=== PATIENT | female | born 1945 | race Caucasian/White ===

== ENCOUNTER 2017-03-26 14:07 | Emergency (ER) | payer MEDICARE ==
--- NOTE | 2017-03-26 15:42 | UC ---
Head Injury HPI - HPI Summary HPI Summary: 71 year old blind female presents with head trauma and dizziness secondary to a fall. I will send her to the ER. - History Of Current Complaint Chief Complaint: UCEar Stated Complaint: HIT HEAD EARS RINGING Time Seen by Provider: 03/26/17 15:36 Hx Last Menstrual Period: n/a - Allergies/Home Medications Allergies/Adverse Reactions: Allergies Allergy/AdvReac Type Severity Reaction Status Date / Time Ampicillin Allergy Severe Anaphylatic Verified 03/26/17 15:30 Shock Clonidine Allergy Severe throat Verified 03/26/17 15:30 swells Erythromycin Allergy Severe Anaphylatic Verified 03/26/17 15:30 Shock Penicillins Allergy Severe Hives Verified 03/26/17 15:30 Ascorbate [From [place] C Vit] Allergy Intermediate Blisters Verified 03/26/17 15 :30 Home Medications: Home Medications Dicyclomine CAP* [Bentyl CAP*] PO BID 03/26/17 [History] Neomyc/Polym/HC 1% OTIC SUSP* [Cortisporin Otic Susp 1%*] 03/26/17 [History] guaiFENesin ER TAB [Mucinex*] 03/26/17 [History] PMH/Surg Hx/FS Hx/Imm Hx Other History Of: Anticoagulant Therapy - with hip replacement in 2011 - Surgical History Surgical History: Yes Surgery Procedure, Year, and Place: CORNEA TRANSPLANT - REJECTED; FOLLOWED BY REMOVAL OF TRANSPLANT;. LEFT HIP; ; HYSTERECTOMY; - Family History Known Family History: Positive: Other - [place], CVA, retinitis pigmentosa, father of pleurisy - Social History Alcohol Use: None Substance Use Type: None Smoking Status (MU): Never Smoked Tobacco - Immunization History Most Recent Influenza Vaccination: 2014 Most Recent Tetanus Shot: not sure Most Recent Pneumonia Vaccination: 2009 Review of Systems Constitutional: Negative Skin: Negative Eyes: Negative ENT: Negative Respiratory: Negative Cardiovascular: Negative Gastrointestinal: Negative Genitourinary: Negative Motor: Negative Neurovascular: Negative Musculoskeletal: Negative Neurological: Headache, Weakness Psychological: Negative All Other Systems Reviewed And Are Negative: Yes Physical Exam Triage Information Reviewed: Yes Vital Signs: Initial Vital Signs Temp 37.7 C 03/26/17 15:21 Pulse 134 03/26/17 15:21 Resp 16 03/26/17 15:21 BP 125/62 03/26/17 15:21 Pulse Ox 99 03/26/17 15:21 Eye Exam: Normal ENT Exam: Normal Dental Exam: Normal Neck exam: Normal Neck: Positive: 1 Respiratory Exam: Normal Cardiovascular Exam: Normal Abdominal Exam: Normal Musculoskeletal Exam: Normal Neurological Exam: Normal Psychological Exam: Normal Skin Exam: Normal Head Injury Course/Dx - Differential Dx/Diagnosis Provider Diagnoses: head injury Discharge - Discharge Plan Condition: Guarded Disposition: [facility] Patient Education Materials: Head Injury (ED), Concussion (ED) Referrals: Gregory Dlaal MD [Medical Doctor] -
[2017-03-26 16:18] VITALS: BP 100/51
== END 2017-03-26 17:00 | disposition short-term general hospital (02) ==
LOC: UCEAST 14:07
DX: S09.90XA Unspecified injury of head, initial encounter (principal); W19.XXXA Unspecified fall, initial encounter; Y93.9 Activity, unspecified; Y92.9 Unspecified place or not applicable; Y99.9 Unspecified external cause status; H54.0 Blindness, both eyes; Z96.649 Presence of unspecified artificial hip joint; Z79.01 Long term (current) use of anticoagulants
CPT/HCPCS: 99213; G0463

== ENCOUNTER 2017-03-26 17:24 | Emergency (ER) | payer MEDICARE ==
[2017-03-26 17:39] VITALS: BP 120/59
[2017-03-26] MEDS ORDERED: Acetaminop/Codeine 30 MG TAB* 1 TAB (300 MG/30 MG) PO ONE (18:52)
--- NOTE | 2017-03-26 18:55 | ED ---
Head Injury - HPI Summary HPI Summary: 71 female presents sent by [facility] with complaints of a buzzing sound in her right ear that has been ongoing for the past 3 days. Patient states she hit her head a month ago and had similar buzzing in her ear that resolved. However Friday she hit the right side of her head on a cabinet again and the buzzing of right ear returned. Patient denies any new medications. States she is legally blind and is the reason she sometimes bumps her head. Admits to one episode of vomiting today around 3pm. Denies taking any medication for her headache/ buzzing in her ears. States headache is diffuse and typical. Denies chest pain , difficulty breathing, memory or concentration loss and abdominal pain. Patient states she has had concussions in the past. Denies any discharge from ear. PMHx include hearing loss, legally blind, previous compression fracture of back. Denies LOC. Not on any anticoagulants. States she has chronic tinnitus intermittently but this sounds different- "buzzing rather than ringing". Not complaining of any nausea a this time. Has been eating and drinking. - History Of Current Complaint Chief Complaint: EDEarPain Stated Complaint: HEAD INJURY Time Seen by Provider: 03/26/17 17:50 Hx Obtained From: Patient Hx Last Menstrual Period: n/a Mechanism Of Injury: Blunt Trauma - hit head on cabinet Onset/Duration: Started Days Ago - 3, Traumatic, Still Present Onset of Pain: Immediate Severity Currently: Mild Severity Initially: Mild Pain Intensity: 6 Pain Scale Used: 0-10 Numeric Location of Head Injury: Temporal - right side, Parietal - right side Location: Diffuse Character: Aching Aggravating Factor(s): Other: - nothing Alleviating Factor(s): Other: - nothing Associated Signs And Symptoms: Negative, Vomiting - x1 episode, Headache, Tinnitus - right ear - Allergies/Home Medications Allergies/Adverse Reactions: Allergies Allergy/AdvReac Type Severity Reaction Status Date / Time Ampicillin Allergy Severe Anaphylatic Verified 03/26/17 15:30 Shock Clonidine Allergy Severe throat Verified 03/26/17 15:30 swells Erythromycin Allergy Severe Anaphylatic Verified 03/26/17 15:30 Shock Penicillins Allergy Severe Hives Verified 03/26/17 15:30 Ascorbate [From [place] C Vit] Allergy Intermediate Blisters Verified 03/26/17 15 :30 PMH/Surg Hx/FS Hx/Imm Hx Endocrine/Hematology History: Reports: Hx Anticoagulant Therapy - back in 2011 not currently 2017 Denies: Hx Diabetes, Hx Thyroid Disease Cardiovascular History: Reports: Hx Angioplasty, Hx Hypertension, Other Cardiovascular Problems/Disorders - ANGIOPLASTY 1999 Denies: Hx Congestive Heart Failure, Hx Pacemaker/ICD Respiratory History: Reports: Hx Chronic Bronchitis, Hx Pneumonia, Other Respiratory Problems/Disorders - PNA Denies: Hx Asthma, Hx Chronic Obstructive Pulmonary Disease (COPD) GI History: Reports: Hx Diverticulosis, Hx Gastroesophageal Reflux Disease, Hx Ulcer, Other GI Disorders - HX COLITIS, Valera's esophagus History: Reports: Other Problems/Disorders - UTI Denies: Hx Renal Disease Musculoskeletal History: Reports: Hx Arthritis, Hx Back Problems, Hx Osteoporosis Sensory History: Reports: Hx Legally Blind, Hx Vision Problem - retinitis pigmentosa, Hx Deafness, Hx Hearing Aid, Hx Hearing Problem Opthamlomology History: Reports: Hx Legally Blind, Hx Vision Problem - retinitis pigmentosa Neurological History: Reports: Hx Headaches Denies: Hx Dementia, Hx Seizures Psychiatric History: Reports: Hx Anxiety Denies: Hx Panic Disorder, Hx Substance Abuse - Cancer History Hx Chemotherapy: No Hx Radiation Therapy: No Hx Palliative Cancer Treatment: No - Surgical History Surgery Procedure, Year, and Place: CORNEA TRANSPLANT - REJECTED; FOLLOWED BY REMOVAL OF TRANSPLANT;. LEFT HIP; ; HYSTERECTOMY; Hx Anesthesia Reactions: No - Immunization History Date of Tetanus Vaccine: unsure Date of Influenza Vaccine: 2011 Infectious Disease History: No Infectious Disease History: Denies: Hx Hepatitis, Hx Human Immunodeficiency Virus (HIV), Traveled Outside the [place] in Last 30 Days - Family History Known Family History: Positive: Cardiac Disease, Other - [place], CVA, retinitis pigmentosa, father of pleurisy - Social History Alcohol Use: None Hx Substance Use: No Substance Use Type: Reports: None Hx Tobacco Use: No Smoking Status (MU): Never Smoked Tobacco Review of Systems Constitutional: Negative Positive: Other - tinnitus Cardiovascular: Negative Respiratory: Negative Musculoskeletal: Negative Positive: Headache All Other Systems Reviewed And Are Negative: Yes Physical Exam Triage Information Reviewed: Yes Vital Signs On Initial Exam: Initial Vitals Temp Pulse Resp BP Pulse Ox 97.4 F 128 22 120/59 94 03/26/17 17:35 03/26/17 17:35 03/26/17 17:35 03/26/17 17:35 03/26/17 17:35 Vital Signs Reviewed: Yes Appearance: Positive: Well-Appearing, No Pain Distress, Well-Nourished Skin: Positive: Warm, Skin Color Reflects Adequate Perfusion, Dry. Negative: Cold, Numb, Tender, Mass @ Head/Face: Positive: Normal Head/Face Inspection, Other - no epistaxis, facial bone tenderness, racoon eyes or battles signs. no hematomas noted Eyes: Positive: Conjunctiva Clear, Other: - legally blind. Negative: EOMI, OSVALDO ENT: Positive: Hearing grossly normal, Pharynx normal, TMs normal, Other - EAC of both ears normal without FB. Negative: TM bulging, TM dull, TM red, Muffled/ hoarse voice Neck: Positive: Supple, Nontender Respiratory/Lung Sounds: Positive: Clear to Auscultation, Breath Sounds Present. Negative: Rales, Rhonchi, Wheezes Cardiovascular: Positive: Normal, RRR, Pulses are Symmetrical in both Upper and Lower Extremities. Negative: Murmur, Rub Abdomen Description: Positive: Nontender, Soft Bowel Sounds: Positive: Present Musculoskeletal: Positive: Normal, Strength/ROM Intact Neurological: Positive: Normal - memory and concentration intact, Sensory/Motor Intact, Alert, Oriented to Person Place, Time, CN Intact II-III, Reflexes Intact , NV Bundle Intact Distally, Normal Gait Psychiatric: Positive: Affect/Mood Appropriate - Roz Coma Scale Best Eye Response: 4 - Spontaneous Best Motor Response: 6 - Obeys Commands Best Verbal Response: 5 - Oriented Diagnostics - Vital Signs Vital Signs Temp Pulse Resp BP Pulse Ox 03/26/17 17:38 97.4 F 128 20 120/59 97 03/26/17 17:35 97.4 F 128 22 120/59 94 - Laboratory Lab Statement: Any lab studies that have been ordered have been reviewed, and results considered in the medical decision making process. - CT brain wo CT Interpretation: No Acute Changes - : No acute intracranial findings CT Interpretation Completed By: Radiologist Re-Evaluation - Re-Evaluation First Eval Re-Evaluation Time: 20:08 Change: Improved - had relief from headache after tylenol Head Injury Course/Dx Course Of Treatment: patient given pain management, states tylenol with codeine is typically what she takes and gives her relief. CT brain obtained due to history and complaints. No abnormal physical exam findings at this time. Ct negative. No concern for any emergent etiolgoy at this time. Normal physical exam and neuro exam. Follow up with ENT. Aware of worsening signs and symptoms. Continue tyelnol/ibuprofen at home for pain. Rest, fluids. - Diagnoses Differential Diagnosis/HQI/PQRI: Concussion Without LOC, Contusion, Hematoma, Intracranial Bleed, Skull Fracture, Other Provider Diagnoses: Concussion without loss of consciousness, Tinnitus, right ear Discharge - Discharge Plan Condition: Stable Disposition: HOME Patient Education Materials: Concussion (ED), Tinnitus (ED) Referrals: No Primary Care Phys,NOPCP [Primary Care Provider] - Additional Instructions: Take Tylenol or Ibuprofen when needed for headache and pain. Rest, drink plenty of fluids and refrain from strenuous exercise until symptoms improve. Follow up with ENT and PCP for further evaluation and work up if symptoms persist. If symptoms worsen or do not improve please seek medical attention.
--- NOTE | 2017-03-26 19:09 | RAD ---
INDICATION: Intracranial injury COMPARISON: CT brain April 12, 2016 TECHNIQUE: Noncontrast axial source images were acquired from the skull base to the vertex. FINDINGS: Ventricles/sulci: The ventricles and cisterns are normal in size and configuration for age. Brain parenchyma: There is no focal parenchymal finding, evidence of intracranial mass, or intracranial mass effect. Intracranial hemorrhage:None. Extra-axial spaces: There are no abnormal extra axial fluid collections or evidence of extra-axial mass. Calvarium: There is no calvarial fracture or other calvarial abnormality. Scalp: There is no evidence of scalp or extracalvarial soft tissue abnormality. Paranasal sinuses/mastoid: The paranasal sinuses and mastoid air cells are clear. Other: None. IMPRESSION: No acute intracranial findings
== END 2017-03-26 20:43 | disposition home or self-care (01) ==
LOC: ED 17:24
DX: S06.0X0A Concussion without loss of consciousness, initial encounter (principal); W22.8XXA Striking against or struck by other objects, initial encounter; Y93.9 Activity, unspecified; Y92.9 Unspecified place or not applicable; H93.11 Tinnitus, right ear; R11.10 Vomiting, unspecified; I10 Essential (primary) hypertension; K21.9 Gastro-esophageal reflux disease without esophagitis; H54.8 Legal blindness, as defined in USA; F41.9 Anxiety disorder, unspecified; Z88.1 Allergy status to other antibiotic agents; Z88.0 Allergy status to penicillin
CPT/HCPCS: 70450; 99282; A9270-GY